=== PATIENT | male | born 1960 | race Caucasian/White ===

== ENCOUNTER 2016-11-30 12:36 | Emergency (ER) | payer BC ==
[~2016-11-30] VITALS: Ht 180.3 cm; Wt 88.5 kg
--- NOTE | 2016-11-30 12:45 | NUR ---
PT CAME IN FOR LEFT SUNCONCTIVAL HEMORRHAGE. SEEN BY MD FOR EVAL. VSS. SAFETY AND COMFORT MEASURES PROVIDED. WILL MONITOR.
--- NOTE | 2016-11-30 14:15 | NUR ---
Patient discharged to home in stable condition. Written and verbal after care instructions given. Patient verbalizes understanding of instruction. Pt ambulatory with a steady gait.
[2016-11-30 14:21] VITALS: BP 128/75
== END 2016-11-30 14:22 | disposition home or self-care (01) ==
LOC: ER 12:39
DX: H11.32 Conjunctival hemorrhage, left eye (principal); R51 Headache
CPT/HCPCS: 70450; 99284; A4606; Z7610

== ENCOUNTER 2017-02-05 09:32 | Emergency (ER) | payer BC ==
[~2017-02-05] VITALS: Ht 180.3 cm; Wt 86.2 kg
[2017-02-05 09:32] VITALS: BP 136/86
== END 2017-02-05 11:02 | disposition home or self-care (01) ==
LOC: ER 09:33
DX: S92.311A Displaced fracture of first metatarsal bone, right foot, initial encounter for closed fracture (principal); S86.911A Strain of unspecified muscle(s) and tendon(s) at lower leg level, right leg, initial encounter; S80.01XA Contusion of right knee, initial encounter; F15.10 Other stimulant abuse, uncomplicated; Z98.890 Other specified postprocedural states; W01.0XXA Fall on same level from slipping, tripping and stumbling without subsequent striking against object, initial encounter; Y93.89 Activity, other specified; Y92.89 Other specified places as the place of occurrence of the external cause; Y99.9 Unspecified external cause status
CPT/HCPCS: 73564; 73660; 99284; A4606; Z7610

== ENCOUNTER 2020-10-11 12:14 | Emergency (ER) | payer BC, OTHER ==
[~2020-10-11] VITALS: Ht 180.3 cm; Wt 72.6 kg
--- NOTE | 2020-10-11 12:30 | NUR ---
Patient c/o L sided tingling sensation on his arm and leg since last night. head injury s/p fall while snowboarding yesterday at 1400. denies loc. Patient a/ox4, breathing even and unlabored, no sob noted. Needs attended.
--- NOTE | 2020-10-11 13:35 | NUR ---
seen and evaluated by ermd dr valladares. pt cleared for discharge. pt provided w/ ct scan copies. discharge in stable condition.
[2020-10-11 13:37] VITALS: BP 155/86
== END 2020-10-11 13:38 | disposition home or self-care (01) ==
LOC: ER 12:19
DX: S09.90XA Unspecified injury of head, initial encounter (principal); M54.12 Radiculopathy, cervical region; K21.9 Gastro-esophageal reflux disease without esophagitis; Z98.890 Other specified postprocedural states; Z88.6 Allergy status to analgesic agent; W19.XXXA Unspecified fall, initial encounter; Y93.89 Activity, other specified; Y92.89 Other specified places as the place of occurrence of the external cause; Y99.8 Other external cause status
CPT/HCPCS: 70450-TC; 72125-TC

== ENCOUNTER 2020-11-05 13:11 | Emergency (ER) | payer OTHER ==
[~2020-11-05] VITALS: Ht 177.8 cm; Wt 74.8 kg
--- NOTE | 2020-11-05 14:11 | NUR ---
DR APONTE AT BEDSIDE FOR EVAL.
--- NOTE | 2020-11-05 14:33 | NUR ---
PT TO RADIOLOGY FOR HEAD CT SCAN VIA WHEELCHAIR.
[2020-11-05 15:42] VITALS: BP 136/83
--- NOTE | 2020-11-05 15:42 | NUR ---
Patient discharged to home in stable condition. Written and verbal after care instructions given. Patient verbalizes understanding of instruction.
== END 2020-11-05 15:43 | disposition home or self-care (01) ==
LOC: ER 13:18
DX: M54.10 Radiculopathy, site unspecified (principal); K21.9 Gastro-esophageal reflux disease without esophagitis; Z98.890 Other specified postprocedural states; Z88.6 Allergy status to analgesic agent
CPT/HCPCS: 70450-TC

== ENCOUNTER 2021-01-08 09:08 | Emergency (ER) | payer OTHER ==
[~2021-01-08] VITALS: Ht 175.3 cm; Wt 90.7 kg
[2021-01-08 09:14] VITALS: BP 133/75
--- NOTE | 2021-01-08 09:25 | NUR ---
SEEN AND EXAMINED BY .
--- NOTE | 2021-01-08 09:29 | NUR ---
[employer] AT BEDSIDE FOR XRAY.
[2021-01-08] MEDS ORDERED: IBUP-1957 PO (10:15)
--- NOTE | 2021-01-08 10:28 | NUR ---
Patient discharged to home in stable condition. Written and verbal after care instructions given. Patient verbalizes understanding of instruction.
== END 2021-01-08 10:28 | disposition home or self-care (01) ==
LOC: ER 09:10
DX: S86.811A Strain of other muscle(s) and tendon(s) at lower leg level, right leg, initial encounter (principal); K21.9 Gastro-esophageal reflux disease without esophagitis; Z98.890 Other specified postprocedural states; Z88.6 Allergy status to analgesic agent; W19.XXXA Unspecified fall, initial encounter; Y93.89 Activity, other specified; Y92.89 Other specified places as the place of occurrence of the external cause; Y99.8 Other external cause status
CPT/HCPCS: 36415; 73564-TC; 84550-TC

== ENCOUNTER 2021-01-11 10:02 | Emergency (ER) | payer OTHER ==
[~2021-01-11] VITALS: Ht 175.3 cm; Wt 90.7 kg
[~2021-01-11 10:02] MED LIST: IBUP-1957 PO
--- NOTE | 2021-01-11 10:15 | NUR ---
The patient BIBS for c/o right knee pain, was here sunday for same reason, 02/18 pain scale ibuprofen 800mg not helping. Will continue to monitor the patient.
[2021-01-11] MEDS ORDERED: LIDOCAINE 1%-EPI 1:100,000 20 ML VIAL ONE (10:20)
[2021-01-11] MEDS ORDERED: CEPHALEXIN MONOHYDRATE 500 MG CAPSULE PO ONE (10:48)
[2021-01-11] MEDS: CEPHALEXIN MONOHYDRATE 500 MG CAPSULE PO ONE (10:50)
[2021-01-11] MEDS ORDERED: TRAM50TA2 PO (10:53)
[2021-01-11] MEDS ORDERED: CEPH500C2 PO (10:53)
--- NOTE | 2021-01-11 11:03 | NUR ---
Patient discharged to home in stable condition. Written and verbal after care instructions given. Patient verbalizes understanding of instruction.
--- NOTE | 2021-01-11 11:03 | NUR ---
right knee aspiration fluid is taken to the lab
[2021-01-11 11:04] VITALS: BP 137/88
== END 2021-01-11 11:04 | disposition home or self-care (01) ==
LOC: ER 10:02
DX: R22.41 Localized swelling, mass and lump, right lower limb (principal); M79.604 Pain in right leg; K21.9 Gastro-esophageal reflux disease without esophagitis; Z98.890 Other specified postprocedural states; Z88.6 Allergy status to analgesic agent
CPT/HCPCS: 20610; 36415; 87070; 89051; 99284; A6403; J3490

== ENCOUNTER 2022-08-01 11:15 | Emergency (ER) | payer OTHER ==
[~2022-08-01] VITALS: Ht 180.3 cm; Wt 88.5 kg
[~2022-08-01 11:15] MED LIST changes: +CEPH500C2 PO; +TRAM50TA2 PO
--- NOTE | 2022-08-01 11:15 | NUR ---
PATIENT ARRIVED C/C RIGHT EAR PAIN S/P SELF IRRIGATION OF EAR. A/O X 3
[2022-08-01 11:23] VITALS: BP 138/77
[2022-08-01] MEDS ORDERED: CIPR7.5D9 LEFT EAR (12:36)
== END 2022-08-01 12:41 | disposition home or self-care (01) ==
LOC: ER 11:17
DX: H60.92 Unspecified otitis externa, left ear (principal); K21.9 Gastro-esophageal reflux disease without esophagitis; Z79.899 Other long term (current) drug therapy; Z98.890 Other specified postprocedural states; Z88.6 Allergy status to analgesic agent